=== PATIENT | female | born 1965 | race Caucasian/White ===

== ENCOUNTER 2019-02-24 13:06 | Observation (INO) ==
--- NOTE | 2019-02-24 13:25 | ERNOTE ---
ER Female HPI Date of Service: 02/24/19 Stated Complaint: abd & back pain Presenting Symptoms: dysuria Time Seen by Provider: 02/24/19 13:25 Source: patient Exam Limitations: no limitations Immunizations: IMMUNIZATION HX Immunizations Up to Date Yes History of Influenza Vaccine Yes Hx Pneumococcal Vaccination No Allergies/Adverse Reactions: Allergies codeine Allergy (Severe, Verified 02/24/19 13:20) itching Home Medications: HOME MEDICATIONS aspirin 81 mg tablet,delayed release 81 mg PO DAILY 06/03/18 [Last Taken Unknown] atorvastatin 20 mg tablet 20 mg PO DAILY 06/03/18 [Last Taken Unknown] dextroamphetamine-amphetamine ER 25 mg 24hr capsule,extend release 50 mg PO DAILY cap 06/03/18 [Last Taken Unknown] lisinopril 20 mg tablet 20 mg PO DAILY 06/03/18 [Last Taken Unknown] medroxyprogesterone 150 mg/mL intramuscular suspension 150 mg IM [id number] 06/03/18 [Last Taken Unknown] metoprolol tartrate 100 mg tablet 100 mg PO DAILY tab 06/03/18 [Last Taken Unknown] multivitamin tablet 1 tab PO DAILY 06/03/18 [Last Taken Unknown] omeprazole 20 mg capsule,delayed release 20 mg PO DAILY 06/03/18 [Last Taken Unknown] ranitidine 150 mg tablet 150 mg PO DAILY 06/03/18 [Last Taken Unknown] buspirone 10 mg tablet 10 mg PO BID 01/02/19 [Last Taken Unknown] Fexofenadine/Pseudoephedrine [Sharmila-D 24 Hour Tablet] 1 ea PO DAILY 01/21/19 [Last Taken Unknown] Warfarin Sodium [Coumadin] 12.5 mg PO DAILY 02/24/19 [Last Taken Unknown] Pain Score #1 Pain Score: 7 - History of Present Illness Narrative: The patient is a 53 year old female who presents for suprapubic pain, bilateral low back pain and hematuria which has been present since Sunday. There are associated symptoms of hypercoagulation. The patient reports combs prapubic pain and bilateral low back pain, 05/07. There are no alleviating factors. There are no aggravating factors. Previous treatments have included: recent administration of Vitamin K po. The past medical history includes: PE with anticoagulation therapy, DVT, ADD, uterine fibroid, GERD, HTN and ovarian cyst. The social history is positive for current tobacco use. The patient has had no ill contacts. Patient states she began having bilateral low back pain and suprapubic pain on Sunday which has worsened throughout the weekend. Patient reports she began having hematuria this am. Patient states she had INR checked at [facility] and then had repeat draw at [facility] with elevated results of INR 10. Review of Systems - Review of Systems Constitutional: Present: chills, fatigue. Absent: recent illness, fever EYE: Present: no symptoms reported ENT: Present: no symptoms reported. Absent: ear pain, nasal drainage, sore throat Respiratory: Present: no symptoms reported. Absent: shortness of breath, cough Cardiology: Present: no symptoms reported. Absent: chest pain Gastrointestinal/Abdominal: Present: nausea, abdominal pain, eating less, drinking less. Absent: vomiting, diarrhea Genitourinary: Present: hematuria. Absent: dysuria Musculoskeletal: Present: back pain Skin: Present: no symptoms reported. Absent: rash Neurological: Present: no symptoms reported Hematologic/Lymphatic: Present: easy bruising, easy bleeding All Other Systems: All systems neg except as marked Medical History (Updated 02/24/19 @ 16:41 by MADHAV Buckley) Has received influenza vaccination in current influenza season (Acute) ADD (attention deficit disorder) Onset Date: Unknown GERD (gastroesophageal reflux disease) Onset Date: Unknown Hypertension Onset Date: Unknown Received influenza vaccination in current influenza season prior to admission Onset Date: ~08/2018 DVT (deep venous thrombosis) Onset Date: ~2008 popliteal DVT right leg Dysmenorrhea Onset Date: 11/25/13 Fibroid, uterine Onset Date: Unknown Hemorrhoids Onset Date: 11/25/13 Menometrorrhagia Onset Date: 11/25/13 Ovarian cyst Onset Date: 09/24/13 left [place] teeth extracted Onset Date: Unknown Surgical History: Surgical History (Updated 11/22/18 @ 14:19 by Sindhu Aguirre [facility]) H/O section Onset Date: ~1995 x 2 - 1987 and 1995 H/O colonoscopy Onset Date: ~09/2017 benign polyp - [facility] - recheck 10 years H/O dilation and curettage Onset Date: ~2001 H/O endoscopy Onset Date: ~09/2017 l [facility] H/O hernia repair Onset Date: ~1997 H/O tubal ligation Onset Date: ~2001 Previous back surgery Onset Date: ~2002 disc surgery Status post hysteroscopic ablation of endometrium Onset Date: Unknown Family History: Family History (Updated 06/03/18 @ 17:12 by Sindhu Aguirre CMA) Aunt Heart disease maternal/paternal Uncle Heart disease maternal/paternal Cancer maternal Brother Rectal cancer Father Hypertension Heart disease Cerebral hemorrhage Grandfather , paternal Heart disease Stomach cancer Grandmother , maternal Uterine cancer Grandmother , paternal CHF (congestive heart failure) Mother Hypertension Heart disease CAD (coronary artery disease) CHF (congestive heart failure) Sister Diabetes Social History: Preferred Language Croatian Do you have any shinto or No cultural preference? Smoking Status Current every day smoker Have you smoked in the past 12 Yes months Do you dip or chew tobacco No Alcohol Use occasionally Drug Use none (Last Updated 01/02/19 @ 18:15 by Teresa Weems DNP) No Social History Section defined Physical Exam - Physical Exam General Appearance: Present: wd/wn, alert, mild distress Head Exam: Present: normal inspection Eye Exam: Normal inspection: bilateral Neck: Present: normal inspection Respiratory: Present: no respiratory distress, normal breath sounds, no accessory muscle use, lungs clear Cardiovascular/Chest: Present: regular rate, rhythm, no murmur Gastrointestinal/Abdominal: Present: normal bowel sounds, nondistended, soft, no organomegaly, tenderness - suprapubic, moderate Back Exam: Present: CVA tenderness (R) - R>L, right side moderate, CVA tenderness (L) Neurological Exam: Present: alert, oriented, normal mood/affect Skin Exam: Present: normal color, warm/dry Progress - Date and Time Seen: Date and Time: 02/24/19 16:19 Discussed case with , will admit patient here due to patient's PCP being unavailable for close follow up as well as pain management and hydration. Discussed case with and will admit, repeat INR this evening. Will initiate with fluid bolus and then maintenance fluids NS at 125ml/hr. Patient received Vitamin K 5mg po ORDER TAKER, will administer 5mg IM. - Results and Orders Patient's Lab Results:: I have reviewed the patient's lab results. - Vital Signs Patient's Vital Signs:: I have reviewed the patient's vital signs. Vital Signs: Vital Signs 02/24/19 13:17 Temperature 36.3 C Pulse Rate 73 Respiratory Rate 16 Blood Pressure 184/102 H O2 Sat by Pulse Oximetry 98 - CT/Ultrasound CT/Ultrasound Narrative: IMPRESSION: * Tiny punctate intrarenal calcification of the left kidney upper pole region. * There are signs of bilateral acute uropathy, with mild bilateral hydronephrosis/proximal hydroureter, and stranding of the bilateral parapelvic/proximal periureteric fat, without signs of bladder or ureteral calcification. There is asymmetric left renal parenchymal/perinephric edema. Differential diagnosis includes recently passed stone from both kidneys, bilateral renal obstructions from other etiologies to include blood clots or tumor, and bilateral pyelonephritis. Consider urology consultation. * Incidental 7 mm pulmonary nodule of the right lower lobe posterior basal segment, which was seen on the previous recent CT angiography dated 01/21/2019. Please see its report for additional details regarding follow-up recommendations. * Additional comments are as above. The examination is overall suboptimal due to noncontrast CT technique, specifically in regards to neoplastic or vascular processes. Potential parenchymal tumor, or acute vascular processes such as aortic/arterial dissection or thrombosis of a vascular structure cannot be entirely excluded by noncontrast exam. Electronically signed by Gio Caal M.D.. 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
[2019-02-24 13:41] LABS: Urine Bilirubin Negative (NEGATIVE); Urine Blood 250 /ul (NEGATIVE); Urine Ketone Negative (NEGATIVE); Urine Nitrite Negative (NEGATIVE); Urine Protein 100 mg/dL (NEGATIVE); Urine Specific Gravity 1.025 SP.GR. (1.005-1.010); Urine Urobilinogen Normal (NORMAL)
[2019-02-24 13:46] LABS: Urine Appearance Bloody (CLEAR); Urine Bacteria 1+; Urine Color Red; Urine RBC >50 /hpf (0-5)
[2019-02-24 13:53] LABS: Hematocrit 42.7 % (37.0-47.0); Hemoglobin 14.6 gm/dL (12.5-16.0); Mean Cell Volume 98.8 fl (78-100); Mean Corpuscular Hemoglobin 33.8 pg (27-31); Mean Corpuscular Hgb Conc 34.2 g/dl (32-36); Mean Platelet Volume 9.6 fl (8-12.5); Neutrophil # 6.6 K/mm3 (1.3-6.0); Neutrophil % 72.7 % (42-75.0); Platelet Count 323 K/mm3 (150-450); Red Blood Count 4.32 M/mm3 (4.2-5.4); Red Cell Distribution Width 13.8 % (11.5-14.0); White Blood Count 9.1 K/mm3 (4.0-10.5)
[2019-02-24 14:48] LABS: Albumin * 3.4 gm/dl (3.4-5.0); BUN/Creatinine Ratio 11.4 (9.0-21.6); CRP 1.2 mg/dL (0.0-0.9); Ca. Corrected For Albumin 9.4 mg/dL (8.4-10.2); Calcium * 9.2 mg/dL (7.9-10.9); Carbon Dioxide 23.2 mmol/L (24-32.6); Potassium 4.2 mmol/L (3.4-4.6); Total Protein 7.4 gm/dL (6.2-8.2)
[2019-02-24] MEDS ORDERED: MORPHINE SULFATE 2 MG/ML DISP.SYRIN IV ONE (16:28)
[2019-02-24] MEDS ORDERED: NORMAL SALINE 1,000 ML IV PRN (16:28)
[2019-02-24] MEDS ORDERED: PHYTONADIONE (VIT K1) 10 MG/ML AMPUL IM ONE (16:39)
[2019-02-24] MEDS ORDERED: ONDANSETRON HCL/PF 2 MG/ML VIAL IV PRN (16:53)
[2019-02-24 17:32] LABS: INR Greater than 10.00 INR (0.92-1.08)
[2019-02-24] MEDS: MORPHINE SULFATE 2 MG/ML DISP.SYRIN IV PRN ×3 (17:38→22:41)
[2019-02-24] MEDS: NORMAL SALINE 1,000 ML IV PRN (18:00)
--- NOTE | 2019-02-24 19:04 | HP ---
Chief Complaint - Chief Complaint Date of Service: 02/24/19 Time of Service: 19:03 Chief Complaint: Abdominal pain, blood in urine History of Present Illness: 53-year-old female with past Dave history of DVT presented to the ER with bilateral flank pain and blood in her urine. Patient is currently on Coumadin for DVT found in her right lower extremity. She has been taking 50 mg a day. INR checked there is greater than 10. Rest of her labs are stable including kidney function and hemogram. She was called in a dose of oral vitamin K by her PCP 5 mg which she took prior to come to the ER. She was given another dose of 5 mg IM vitamin K. Her vital signs are stable, she is afebrile, rest of her blood work was within acceptable range. CT scan of her abdomen without contrast showed her to have bilateral kidney abnormalities resulting in mild hydronephrosis. Because of the hydronephrosis was undetermined but differential included thrombus, pyelo-, cannot exclude tumor. Dr. Brown was called from the ER, he stated that we could start her on antibiotics if he felt clinically that she had an infection but otherwise could hold off on doing this. She is given morphine for her abdominal pain which resolved her issue there. She was admitted under observation due to supratherapeutic INR, hematuria, and unknown bilateral renal abnormality seen on CT scan. Patient has a history of hypertension, hyperlipidemia, GERD. Medical History (Updated 02/24/19 @ 19:04 by George Robles DO) Has received influenza vaccination in current influenza season (Acute) ADD (attention deficit disorder) Onset Date: Unknown GERD (gastroesophageal reflux disease) Onset Date: Unknown Hypertension Onset Date: Unknown Received influenza vaccination in current influenza season prior to admission Onset Date: ~08/2018 DVT (deep venous thrombosis) Onset Date: ~2008 popliteal DVT right leg Dysmenorrhea Onset Date: 11/25/13 Fibroid, uterine Onset Date: Unknown Hemorrhoids Onset Date: 11/25/13 Menometrorrhagia Onset Date: 11/25/13 Ovarian cyst Onset Date: 09/24/13 left [place] teeth extracted Onset Date: Unknown Surgical History: Surgical History (Updated 02/24/19 @ 19:04 by George Robles DO) H/O section Onset Date: ~1995 x - 1987 and 1995 H/O colonoscopy Onset Date: ~09/2017 benign polyp - [facility] - recheck 10 years H/O dilation and curettage Onset Date: ~2001 H/O endoscopy Onset Date: ~09/2017 wnl - [facility] H/O hernia repair Onset Date: ~1997 H/O tubal ligation Onset Date: ~2001 Previous back surgery Onset Date: ~2002 disc surgery Status post hysteroscopic ablation of endometrium Onset Date: Unknown Family History: Family History (Last Updated 02/24/19 @ 17:15 by Tisha Vásquez RN) Aunt Heart disease maternal/paternal Uncle Heart disease maternal/paternal Cancer maternal Brother Rectal cancer Father Cerebral hemorrhage Heart disease Hypertension Grandfather , paternal Stomach cancer Heart disease Grandmother , maternal Uterine cancer Grandmother , paternal CHF (congestive heart failure) Mother CAD (coronary artery disease) CHF (congestive heart failure) Heart disease Hypertension Sister Diabetes Social History: Patient Lives/Resources Home Utilized Preferred Language Gibraltarian Do you have any sikh or No cultural preference? Smoking Status Current every day smoker Have you smoked in the past 12 Yes months Do you dip or chew tobacco No Alcohol Use occasionally Drug Use none (Last Updated 01/02/19 @ 18:15 by Teresa Weems DNP) No Social History Section defined Review Of Systems (GEN) - Review of Systems Generalized/Overall Review: Absent: Weakness, Chills, Fever, Fatigue EENTM: Present: No Symptoms Reported Respiratory: Absent: Cough, Shortness of Breath Cardiac: Present: No Symptoms Reported Abdominal: Present: Abdominal Pain. Absent: Nausea, Vomiting, Hematemesis, Melena Genitourinary: Present: Hematuria. Absent: Burning, Urgency, Frequency Musculoskeletal: Present: Other - Bilateral flank pain Neurological: Present: No Symptoms Reported Skin: Present: No Symptoms Reported Immunizations: IMMUNIZATION HX Immunizations Up to Date Yes History of Influenza Vaccine Yes Hx Pneumococcal Vaccination No Allergies/Adverse Reactions: Allergies Allergy/AdvReac Type Severity Reaction Status Date / Time codeine Allergy Severe itching Verified 02/24/19 17:16 Home Medications: HOME MEDICATIONS aspirin 81 mg tablet,delayed release 81 mg PO DAILY 06/03/18 [Last Taken Unknown] atorvastatin 20 mg tablet 20 mg PO DAILY 06/03/18 [Last Taken Unknown] dextroamphetamine-amphetamine ER 25 mg 24hr capsule,extend release 50 mg PO DAILY cap 06/03/18 [Last Taken Unknown] lisinopril 20 mg tablet 20 mg PO DAILY 06/03/18 [Last Taken Unknown] medroxyprogesterone 150 mg/mL intramuscular suspension 150 mg IM [id number] 06/03/18 [Last Taken Unknown] multivitamin tablet 1 tab PO DAILY 06/03/18 [Last Taken Unknown] omeprazole 20 mg capsule,delayed release 40 mg PO DAILY 06/03/18 [Last Taken 02/24/19] ranitidine 150 mg tablet 150 mg PO DAILY 06/03/18 [Last Taken Unknown] buspirone 10 mg tablet 10 mg PO BID 01/02/19 [Last Taken Unknown] Fexofenadine/Pseudoephedrine [Sharmila-D 24 Hour Tablet] 1 ea PO DAILY 01/21/19 [Last Taken Unknown] Warfarin Sodium [Coumadin] 12.5 mg PO DAILY 02/24/19 [Last Taken Unknown] Metoprolol Succinate [Toprol Xl] 100 mg PO QAM 02/25/19 [Last Taken 02/24/19] Exam - Exam Vital Signs: Vital Signs - Last Taken Temp 36.6 C 02/24/19 17:19 Pulse 67 02/24/19 17:19 Resp 16 02/24/19 17:19 BP 170/90 H 02/24/19 17:19 Pulse Ox 99 02/24/19 17:19 Constitutional: Present: Alert, Oriented x3, Cooperative, Obese Neck: Present: non-tender, full range of motion Back Exam: Present: CVA tenderness (R), CVA tenderness (L) Respiratory: Present: lungs clear, normal breath sounds, no respiratory distress Cardiovascular/Chest: Present: regular rate, rhythm, no edema Abdomen: Present: Normal bowel sounds, soft, nontender /Rectal: Present: Exam deferred Skin Exam: Present: normal color, warm/dry Appearance: Present: appropriate appearance, appropriate insight Eye contact: Present: cooperative, good eye contact, normal speech Thoughts: Present: normal thought pattern, normal mood /affect Diagnostic Studies: Abnormal Lab Results 02/24/19 02/24/19 02/24/19 Range/Units 13:31 13:45 13:48 MCH 33.8 H (27-31) pg Lymphocytes % 15.9 L (20-51) % Neutrophils # 6.6 H (1.3-6.0) K/mm3 Lymphocytes # 1.44 L (1.5-3.5) k/mm3 PT Greater than 100.0 H (9.1-10.7) Seconds INR (Anticoag Therapy) Greater than 10.00 H* (0.92-1.08) INR Carbon Dioxide (24-32.6) mmol/L Anion Gap (6.8-13.8) mmol/L C-Reactive Prot, Quant (0.0-0.9) mg/dL Urine Protein 100 H (NEGATIVE) mg/dL Urine Blood 250 H (NEGATIVE) /ul Prot Sulfosalicylic Acd 4+ H (0) mg/dL Urine RBC >50 H (0-5) /hpf Urine WBC 5-10 H (0-5) /hpf Urine Bacteria 1+ H (NONE) 02/24/19 Range/Units 13:48 MCH (27-31) pg Lymphocytes % (20-51) % Neutrophils # (1.3-6.0) K/mm3 Lymphocytes # (1.5-3.5) k/mm3 PT (9.1-10.7) Seconds INR (Anticoag Therapy) (0.92-1.08) INR Carbon Dioxide 23.2 L (24-32.6) mmol/L Anion Gap 15.0 H (6.8-13.8) mmol/L C-Reactive Prot, Quant 1.2 H (0.0-0.9) mg/dL Urine Protein (NEGATIVE) mg/dL Urine Blood (NEGATIVE) /ul Prot Sulfosalicylic Acd (0) mg/dL Urine RBC (0-5) /hpf Urine WBC (0-5) /hpf Urine Bacteria (NONE) Laboratory Results WBC 9.1 K/mm3 (4.0-10.5) 02/24/19 13:48 RBC 4.32 M/mm3 (4.2-5.4) 02/24/19 13:48 Hgb 14.6 gm/dL (12.5-16.0) 02/24/19 13:48 Hct 42.7 % (37.0-47.0) 02/24/19 13:48 MCV 98.8 fl (78-100) 02/24/19 13:48 MCH 33.8 pg (27-31) H 02/24/19 13:48 MCHC 34.2 g/dl (32-36) 02/24/19 13:48 RDW 13.8 % (11.5-14.0) 02/24/19 13:48 Plt Count 323 K/mm3 (150-450) 02/24/19 13:48 MPV 9.6 fl (8-12.5) 02/24/19 13:48 Immature Gran % (Auto) 0.10 % (0.001-0.429) 02/24/19 13:48 Immature Gran # (Auto) 0.01 K/mm3 (0.000-0.0310) 02/24/19 13:48 72.7 % (42-75.0) 02/24/19 13:48 15.9 % (20-51) L 02/24/19 13:48 8.5 % (0.0-9) 02/24/19 13:48 2.0 % (0.0-3.0) 02/24/19 13:48 0.8 % (0.0-1.0) 02/24/19 13:48 Nucleated RBC % 0.0 k/mm3 (0-1) 02/24/19 13:48 6.6 K/mm3 (1.3-6.0) H 02/24/19 13:48 1.44 k/mm3 (1.5-3.5) L 02/24/19 13:48 0.8 k/mm3 (0.0-1.0) 02/24/19 13:48 0.2 k/mm3 (0.0-0.7) 02/24/19 13:48 Absolute Basophils 0.1 k/mm3 (0.0-0.1) 02/24/19 13:48 PT Greater than 100.0 Seconds (9.1-10.7) H 02/24/19 13:45 INR (Anticoag Therapy) Greater than 10.00 INR (0.92-1.08) H* 02/24/19 13:45 Sodium 137 mmol/L (132-142) 02/24/19 13:48 137 mmol/L (130-142) 02/24/19 13:48 Potassium 4.2 mmol/L (3.4-4.6) 02/24/19 13:48 Chloride 103 mmol/L (97-106) 02/24/19 13:48 Carbon Dioxide 23.2 mmol/L (24-32.6) L 02/24/19 13:48 15.0 mmol/L (6.8-13.8) H 02/24/19 13:48 BUN 9 mg/dL (3-23) 02/24/19 13:48 0.79 mg/dL (0.4-1.4) 02/24/19 13:48 Est GFR (Non-Af Amer) 82 mL/min (60-130) D 02/24/19 13:48 11.4 (9.0-21.6) 02/24/19 13:48 104 mg/dL (70-110) 02/24/19 13:48 Calcium 9.2 mg/dL (7.9-10.9) 02/24/19 13:48 Calcium Adj for Albumin 9.4 mg/dL (8.4-10.2) 02/24/19 13:48 1.0 mg/dL (0.0-1.1) 02/24/19 13:48 AST 15 U/L (0-48) 02/24/19 13:48 ALT 19 U/L (19-67) 02/24/19 13:48 112 U/L (50-170) 02/24/19 13:48 C-Reactive Prot, Quant 1.2 mg/dL (0.0-0.9) H 02/24/19 13:48 7.4 gm/dL (6.2-8.2) 02/24/19 13:48 3.4 gm/dl (3.4-5.0) 02/24/19 13:48 Red 02/24/19 13:31 Bloody (CLEAR) 02/24/19 13:31 7.0 pH (5.0-7.0) 02/24/19 13:31 Ur Specific [place] 1.025 SP.GR. (1.005-1.010) 02/24/19 13:31 100 mg/dL (NEGATIVE) H 02/24/19 13:31 Negative mg/dL (NEGATIVE) 02/24/19 13:31 Negative mg/dL (NEGATIVE) 02/24/19 13:31 250 /ul (NEGATIVE) H 02/24/19 13:31 Negative (NEGATIVE) 02/24/19 13:31 Negative mg/dl (NEGATIVE) 02/24/19 13:31 Prot Sulfosalicylic Acd 4+ mg/dL (0) H 02/24/19 13:31 Normal EU/dl (NORMAL) 02/24/19 13:31 Ur Leukocyte Esterase Negative /ul (NEGATIVE) 02/24/19 13:31 >50 /hpf (0-5) H 02/24/19 13:31 5-10 /hpf (0-5) H 02/24/19 13:31 Ur Epithelial Cells None seen /hpf (0-5) 02/24/19 13:31 1+ (NONE) H 02/24/19 13:31 No culture indicated 02/24/19 13:31 Assessment/Plan - Narrative Narrative: Patient brought in under observation for elevated INR. Patient diagnosed with DVT last month and has been on Coumadin since. Patient has been being monitored by a physician in [place], currently taking 15 mg of warfarin a day. She was given a total of 10 mg of vitamin K today, will recheck INR in the morning, we will monitor hemoglobin and hematocrit Coumadin at this time, though both are stable at this time. Blood pressure slightly elevated, will restart home medications to be given as directed. Will also add IV hydralazine as needed 10 mg every 2 hours for systolic pressures greater than 170. We will continue to monitor her blood pressure, make changes as needed. Likely will repeat CT scan with contrast in the morning to further evaluate abnormality seen on prior CT scan. Pending what that scan shows, will discuss his case again with Dr. Brown if significant abnormality identified. Otherwise the scan comes back showing that her kidneys are okay and her INR improves overnight, she likely can be discharged home tomorrow with close follow-up with her PCP. 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
[2019-02-24] MEDS ORDERED: hydrALAZINE HCL 20 MG/ML VIAL IV PRN (19:26)
[2019-02-24 19:38] LABS: INR Greater than 10.00 INR (0.92-1.08)
[2019-02-24] MEDS: busPIRone HCL 5 MG TABLET PO SCH (20:16)
[2019-02-25] MEDS: MORPHINE SULFATE 2 MG/ML DISP.SYRIN IV PRN ×4 (00:53→08:29)
[2019-02-25] MEDS: NORMAL SALINE 1,000 ML IV PRN ×3 (01:46→21:20)
[2019-02-25 05:28] LABS: Hematocrit 40.5 % (37.0-47.0); Hemoglobin 13.4 gm/dL (12.5-16.0); Mean Cell Volume 101.3 fl (78-100); Mean Corpuscular Hemoglobin 33.5 pg (27-31); Mean Corpuscular Hgb Conc 33.1 g/dl (32-36); Mean Platelet Volume 9.6 fl (8-12.5); Neutrophil # 4.2 K/mm3 (1.3-6.0); Neutrophil % 61.5 % (42-75.0); Platelet Count 280 K/mm3 (150-450); Red Cell Distribution Width 13.7 % (11.5-14.0); White Blood Count 6.9 K/mm3 (4.0-10.5)
[2019-02-25 05:37] LABS: Anion Gap 13.5 mmol/L (6.8-13.8); Calcium * 8.5 mg/dL (7.9-10.9); Carbon Dioxide 23.3 mmol/L (24-32.6); Potassium 3.8 mmol/L (3.4-4.6)
[2019-02-25 05:49] LABS: Prothrombin Time (Patient) 48.5 Seconds (9.1-10.7)
[2019-02-25] MEDS: PANTOPRAZOLE SODIUM 20 MG TABLET.DR PO SCH (06:43)
[2019-02-25 07:07] LABS: INR 5.22 INR (0.92-1.08)
[2019-02-25] MEDS: METOPROLOL TARTRATE 100 MG TABLET PO SCH ×2 (08:12→08:25)
[2019-02-25] MEDS: busPIRone HCL 5 MG TABLET PO SCH ×2 (08:12→21:17)
[2019-02-25] MEDS ORDERED: ROSUVASTATIN CALCIUM 10 MG TABLET PO SCH (09:00)
--- NOTE | 2019-02-25 09:24 | PN ---
Subjective - Date and Time Seen Date: 02/25/19 Time: 09:18 Subjective Narrative: Patient did well overnight without any acute events. Her vital signs been stable. She is been afebrile. Her abdominal pain is improving requiring less morphine that is being spaced out over longer period of time. Her INR has improved and her hemoglobin is stable. Objective - Review of Systems Generalized/Overall Review: Reports: No Symptoms Reported EENTM: Reports: No Symptoms Reported Respiratory: Reports: No Symptoms Reported Cardiac: Reports: No Symptoms Reported Abdominal: Reports: Abdominal Pain. Denies: Hematemesis, Melena, Bright blood from rectum Genitourinary Symptoms: Reports: Hematuria - Improving, urine more clear and less dark red. Denies: Burning, Urgency, Frequency Musculoskeletal Complaints: Reports: No Symptoms Reported Neurological: Reports: No Symptoms Reported - Vitals Vitals: Last Vital Signs Temp 36.8 C 02/25/19 08:53 Pulse 79 02/25/19 08:53 Resp 18 02/25/19 08:53 BP 138/61 02/25/19 08:53 Pulse Ox 96 02/25/19 08:53 - Abnormal Lab Findings Abnormal Lab Findings: Abnormal Lab Results 02/24/19 02/24/19 02/24/19 Range/Units 13:31 13:45 13:48 RBC (4.2-5.4) M/mm3 MCV (78-100) fl MCH 33.8 H (27-31) pg Lymphocytes % 15.9 L (20-51) % Neutrophils # 6.6 H (1.3-6.0) K/mm3 Lymphocytes # 1.44 L (1.5-3.5) k/mm3 PT Greater than 100.0 H (9.1-10.7) Seconds INR (Anticoag Therapy) Greater than 10.00 H* (0.92-1.08) INR Carbon Dioxide (24-32.6) mmol/L Anion Gap (6.8-13.8) mmol/L C-Reactive Prot, Quant (0.0-0.9) mg/dL Urine Protein 100 H (NEGATIVE) mg/dL Urine Blood 250 H (NEGATIVE) /ul Prot Sulfosalicylic Acd 4+ H (0) mg/dL Urine RBC >50 H (0-5) /hpf Urine WBC 5-10 H (0-5) /hpf Urine Bacteria 1+ H (NONE) 02/24/19 02/24/19 02/25/19 Range/Units 13:48 19:05 05:15 RBC 4.00 L (4.2-5.4) M/mm3 MCV 101.3 H (78-100) fl MCH 33.5 H (27-31) pg Lymphocytes % (20-51) % Neutrophils # (1.3-6.0) K/mm3 Lymphocytes # (1.5-3.5) k/mm3 PT Greater than 100.0 H (9.1-10.7) Seconds INR (Anticoag Therapy) Greater than 10.00 H* (0.92-1.08) INR Carbon Dioxide 23.2 L (24-32.6) mmol/L Anion Gap 15.0 H (6.8-13.8) mmol/L C-Reactive Prot, Quant 1.2 H (0.0-0.9) mg/dL Urine Protein (NEGATIVE) mg/dL Urine Blood (NEGATIVE) /ul Prot Sulfosalicylic Acd (0) mg/dL Urine RBC (0-5) /hpf Urine WBC (0-5) /hpf Urine Bacteria (NONE) 02/25/19 02/25/19 Range/Units 05:15 05:15 RBC (4.2-5.4) M/mm3 MCV (78-100) fl MCH (27-31) pg Lymphocytes % (20-51) % Neutrophils # (1.3-6.0) K/mm3 Lymphocytes # (1.5-3.5) k/mm3 PT 48.5 H (9.1-10.7) Seconds INR (Anticoag Therapy) 5.22 H* (0.92-1.08) INR Carbon Dioxide 23.3 L (24-32.6) mmol/L Anion Gap (6.8-13.8) mmol/L C-Reactive Prot, Quant (0.0-0.9) mg/dL Urine Protein (NEGATIVE) mg/dL Urine Blood (NEGATIVE) /ul Prot Sulfosalicylic Acd (0) mg/dL Urine RBC (0-5) /hpf Urine WBC (0-5) /hpf Urine Bacteria (NONE) - Exam Constitutional: Present: Alert, Oriented x3, Cooperative, Obese ENT Exam: Present: hearing grossly normal. Absent: nasal congestion, nasal drainage Neck: Present: non-tender, full range of motion Breasts: Present: Exam deferred Respiratory: Present: chest non-tender, lungs clear, normal breath sounds Cardiovascular/Chest: Present: normal peripheral pulses, regular rate, rhythm, no edema Abdomen: Present: Normal bowel sounds, soft, nontender, CVA tenderness - Bilateral /Rectal: Present: Exam deferred Skin Exam: Present: normal color, warm/dry Appearance: Present: appropriate appearance Eye contact: Present: cooperative, good eye contact Thoughts: Present: normal thought pattern, normal mood /affect Assessment/Plan Plan Narrative: Patient did well overnight. INR returned to 5.2 after the 10 mg of vitamin K was given to the patient. Hemoglobin dropped from 14.6-13.4 for but otherwise is stable. We will continue to monitor INR and hemoglobin if patient stays over night. Awaiting CT with contrast this morning to further evaluate abnormality seen on scan without contrast done yesterday, this will determine whether or not patient needs to stay for further work-up. Blood pressure stable and she is feeling well. She is still afebrile. Pain significantly improved and well controlled. No DVT prophylaxis patient is still supratherapeutic. Regular diet started. Home medications restarted this a.m. nurse will call with any questions or concerns. 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
[2019-02-25] MEDS ORDERED: DIATRIZOATE MEGLUMINE, SODIUM 30 ML BTL PO ONE (11:00)
[2019-02-25] MEDS ORDERED: ACETAMINOPHEN 500 MG TABLET PO PRN (14:32)
[2019-02-25] MEDS ORDERED: ROSUVASTATIN CALCIUM 20 MG TABLET PO SCH (21:00)
[2019-02-25] MEDS ORDERED: METOPROLOL SUCCINATE 50 MG TABLET.SA PO ONE (21:07)
[2019-02-25] MEDS: METOPROLOL SUCCINATE 100 MG TABLET.SA PO SCH (21:18)
[2019-02-26] MEDS: NORMAL SALINE 1,000 ML IV PRN (04:19)
[2019-02-26 05:44] LABS: Prothrombin Time (Patient) 20.9 Seconds (9.1-10.7)
[2019-02-26 05:45] LABS: Anion Gap 12.7 mmol/L (6.8-13.8); BUN/Creatinine Ratio 10.8 (9.0-21.6); Calcium * 8.7 mg/dL (7.9-10.9); Carbon Dioxide 22.3 mmol/L (24-32.6); Estimated Creat Clear 79.3; INR 2.18 INR (0.92-1.08)
[2019-02-26] MEDS: PANTOPRAZOLE SODIUM 20 MG TABLET.DR PO SCH (07:34)
[2019-02-26] MEDS: busPIRone HCL 5 MG TABLET PO SCH (08:50)
--- NOTE | 2019-02-26 10:32 | PN ---
Subjective - Date and Time Seen Date: 02/26/19 Time: 10:32 Objective - Vitals Vitals: Last Vital Signs Temp 37.2 C 02/26/19 10:00 Pulse 77 02/26/19 10:00 Resp 18 02/26/19 10:00 BP 128/64 02/26/19 10:00 Pulse Ox 96 02/26/19 10:00 - Abnormal Lab Findings Abnormal Lab Findings: Abnormal Lab Results 02/26/19 02/26/19 Range/Units 05:25 05:25 PT 20.9 H (9.1-10.7) Seconds INR (Anticoag Therapy) 2.18 H (0.92-1.08) INR Chloride 109 H (97-106) mmol/L Carbon Dioxide 22.3 L (24-32.6) mmol/L Assessment/Plan - Problems/Diagnosis (1) Hematuria Problem: Acute Qualifiers: Hematuria type: gross Qualified Code(s): R31.0 - Gross hematuria (2) Elevated INR Problem: Acute (3) 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
--- NOTE | 2019-02-26 13:43 | CONS ---
HPI - General Narrative: Reason for consultation: Gross hematuria and CT abnormality possible hydronephrosis 53-year-old female smoker although trying to quit on Coumadin with supratherapeutic INR developed gross hematuria. 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 She cannot come off. She developed severe back pain bilaterally after the gross hematuria. There is a recurrent infection history but not frequent. She has not received antibiotics. Her urinalysis was voiding into a hat so I don't know how accurate that is. She has had another bleeding episode in the past roughly a year ago thought it was an infection. 02/14 voided UA: Microscopic abnormality, 1+ bacteria. Culture: Not performed/no results 02/14 blood cultures: Negative 02/14 midstream UA today: Pending Creatinine history: 02/14 0.85 02/14 CT stone protocol: No stones, possibly some mild hydronephrosis bilaterally but the same haziness seen on the CT urogram is present here. Ureters aren't dilated. Most common cause of this finding would be infectious, some sort of weird retroperitoneal fibrosis but the obstruction is not consistent versus may be normal for patient. Not sure yet. Film independently reviewed by myself. 02/14 CT urogram: No stones or true hydronephrosis. Excretion is symmetrical prompt. There is a haziness in the retroperitoneum starting renal pelvis all the way down to the bladder but it is symmetric. No obstruction. No filling defects in the bladder. Not sure as to clinical significance just looks weird on CT. film independently reviewed by myself. Location: Bladder Duration: Days Severity/Stage: Severe, gross hematuria clots Associated Sx's: Bleeding/bilateral back pain, no nausea Modifying factors: Pain got better after the bleeding subsided, bleeding subsided after the INR was reversed Quality: Dull ache with sharper component during the acute obstruction phase. Past medical history: Includes recurrent DVT with PE for which she is on Coumadin, not diabetic Past surgical history: No prior urologic surgery Social history: Smoker, she is down to a couple cigarettes he will quick, she got the fist bump. Family history: No urologic malignancies Review of systems:General: No current fevers, no fevers when she had gross hematuria Lungs: Smoker but no current shortness of breath, she has had prior PE Heart: No chest pain, denies arrhythmia GI: Did not have nausea Gynecologic: Still has female organs, estrogen risk factors positive 2 out of 5 Musculoskeletal: Digits have bilateral significant back pain now resolved Endocrine: Denies diabetes Neurologic: No dizziness or headache currently : Prior gross hematuria year ago. Rare infection. 14 point review of systems otherwise negative, important positives noted. - History of Present Illness Allergies/Adverse Reactions: Allergies codeine Allergy (Severe, Verified 02/24/19 17:16) itching Home Medications: Home Medications Medication Instructions Recorded Last Taken aspirin 81 mg tablet,delayed 81 mg PO DAILY 06/03/18 Unknown release atorvastatin 20 mg tablet 20 mg PO DAILY 06/03/18 Unknown dextroamphetamine-amphetamine ER 50 mg PO DAILY cap 06/03/18 Unknown 25 mg 24hr capsule,extend release lisinopril 20 mg tablet 20 mg PO DAILY 06/03/18 Unknown medroxyprogesterone 150 mg/mL 150 mg IM [id number] 06/03/18 Unknown intramuscular suspension multivitamin tablet 1 tab PO DAILY 06/03/18 Unknown omeprazole 20 mg capsule,delayed 40 mg PO DAILY 06/03/18 02/24/19 release ranitidine 150 mg tablet 150 mg PO DAILY 06/03/18 Unknown buspirone 10 mg tablet 10 mg PO BID 01/02/19 Unknown Fexofenadine/Pseudoephedrine 1 ea PO DAILY 01/21/19 Unknown [Sharmila-D 24 Hour Tablet] Warfarin Sodium [Coumadin] 12.5 mg PO DAILY 02/24/19 Unknown Metoprolol Succinate [Toprol Xl] 100 mg PO QAM 02/25/19 02/24/19 Medications - Medications Current Medications: Current Medications Acetaminophen (Tylenol) 1,000 mg PO Q8H PRN PRN Reason: Mild pain (pain scale 1-3) Stop: 03/27/19 14:33 Last Admin: 02/25/19 14:58 Dose: 1,000 mg Documented by: Buspirone HCl (Buspar) 10 mg PO BID LILY Stop: 03/26/19 21:01 Last Admin: 02/26/19 08:50 Dose: 10 mg Documented by: Sodium Chloride (Sodium Chloride 0.9%) 1,000 mls @ 999 mls/hr IV .Q1H1M PRN PRN Reason: HYDRATION Stop: 03/26/19 16:29 Last Infusion: 02/24/19 18:00 Dose: Infused Documented by: Sodium Chloride (Sodium Chloride 0.9%) 1,000 mls @ 125 mls/hr IV .Q8H PRN PRN Reason: HYDRATION Stop: 03/26/19 16:53 Last Admin: 02/26/19 04:19 Dose: 125 mls/hr Documented by: Metoprolol Succinate (Toprol Xl) 100 mg PO DAILY [facility] Stop: 03/27/19 21:01 Last Admin: 02/25/19 21:18 Dose: 100 mg Documented by: Morphine Sulfate (Morphine Sulfate) 2 mg IV Q1H PRN PRN Reason: Pain Stop: 03/26/19 16:54 Last Admin: 02/25/19 08:29 Dose: 2 mg Documented by: Ondansetron HCl (Zofran) 4 mg IV Q6H PRN PRN Reason: Nausea And Vomiting Stop: 03/26/19 16:54 Last Admin: 02/25/19 01:01 Dose: 4 mg Documented by: Pantoprazole Sodium (Protonix) 20 mg PO DAILY@0700 [facility] Stop: 03/27/19 07:01 Last Admin: 02/26/19 07:34 Dose: 20 mg Documented by: Rosuvastatin Calcium (Crestor) 20 mg PO HS [facility] Stop: 03/27/19 21:01 Last Admin: 02/25/19 21:19 Dose: 20 mg Documented by: Physical Examination - Exam Narrative: General: Nontoxic, no acute distress, not in renal colic, eager to get out of here Psych: Alert and oriented, mentating well,, affect appropriate HEENT: EOM grossly intact , no scleral icterus, normocephalic Lungs: Respirations unlabored, clear, good inspiratory effort Abdomen: Morbidly obese, no peritoneal signs Neuro: Laying in bed but no gross focal deficits Extremities: Moves all 4, located fine dexterity, perfused Heart: No JVD Skin: No obvious rash or bruising on visualize skin Back: No CVA tenderness Vital Signs: Vital Signs - Last Taken Temp 99.0 F 02/26/19 10:00 Pulse 77 02/26/19 10:00 Resp 18 02/26/19 10:00 BP 128/64 02/26/19 10:00 Pulse Ox 96 02/26/19 10:00 O2 Oxygen Delivery Method Room Air - Results and Findings: Narrative: #1 gross hematuria: She has done this before, she is a smoker. My review of the CT shows nothing obvious I don't know what to make of this inflammatory type finding of the ureters and kidneys/renal pelvis. She will require an outpatient workup for this going forward. Urinalysis was not normal but it was weighted into a hat. She has not gotten antibiotics. Requested midstream urine be sent so I have something to look at. If normal I would trusted if abnormal I might catheterized. It is possible this was all super therapeutic INR with bilateral obstruction from bleeding with resolution which gave the imaging finding but in a smoker need to make sure nothing else going on. She will see me in a few weeks with a repeat urinalysis I may change to catheterized depending on today's urinalysis findings. Obtaining ultrasound to make sure hydronephrosis on/not worse and to discuss best way to go after the hematuria workup i.e. office cystoscopy versus sit tight and perform down the road versus in the operating room with formal retrogrades and the ability to obtain a biopsy. A little more complicated with the Coumadin I might have her hold for a few days sounds like her DVTs are legitimate and she is higher risk. I discussed patient personally with primary provider and I will try and get him some additional inflow prior to patient discharge. I have arranged for follow- up with my office and discussed with nursing staff. Patient was comfortable. I hope she gets off the cigarettes by then. Lab/Microbiology results last 24 hrs: Abnormal/Pending Laboratory Last 24 HRS 02/26/19 02/26/19 05:25 05:25 PT 20.9 H INR (Anticoag Therapy) 2.18 H Chloride 109 H Carbon Dioxide 22.3 L Culture 02/24/19 14:15 Blood Culture - Preliminary Blood No Growth 24 Hours 02/24/19 13:48 Blood Culture - Preliminary Blood NO GROWTH 24 HOURS
[2019-02-26 15:06] VITALS: BP 148/86
[2019-02-26 15:21] LABS: Urine Bilirubin Negative (NEGATIVE); Urine Blood 25 /ul (NEGATIVE); Urine Ketone Negative (NEGATIVE); Urine Nitrite Negative (NEGATIVE); Urine Protein Negative (NEGATIVE); Urine Urobilinogen Normal (NORMAL); Urine pH 6.5 pH (5.0-7.0)
[2019-02-26 15:30] LABS: Urine Appearance Clear (CLEAR); Urine Color Yellow
[2019-02-26 15:31] LABS: Urine Bacteria 1+; Urine RBC 0-5 /hpf (0-5); Urine WBC 0-5 /hpf (0-5)
[2019-02-26] MEDS: METOPROLOL SUCCINATE 100 MG TABLET.SA PO SCH (16:16)
[2019-02-26] MEDS ORDERED: ENOXAPARIN SODIUM 40 MG/0.4 ML SYRG SC SCH (16:45)
--- NOTE | 2019-02-26 16:57 | DS ---
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 She was found to have a supratherapeutic INR of greater than 10, currently on Coumadin for DVT. She has been on this medication for the last month and was taking 12.5 mg a day. She received 10 mg of vitamin K and her Coumadin was held. INR was 2.18 on the day of discharge. She was advised to restart Coumadin on the evening of discharge. She is given 1 shot of Lovenox prior to discharge. She is to follow-up with her PCP tomorrow morning to have INR rechecked which she agrees to do. Patient was very anxious to leave. Her hemoglobin was stable upon discharge (13.4) CT scan with contrast showed her to have bilateral obstructions causing mild hydronephrosis. Dr. Francis was consulted who felt like this was likely artifact but ordered a clean-catch urine to look for infection as this was a possibility though not as likely that she had a normal white count has been afebrile and hemostatically stable since being here. We will notify her and Dr. Francis of the results once they return. Flank dave had resolved upon discharge and she was no longer having blood in her urine. Patient instructed to restart her home medications though advised her to only take 10 mg of Coumadin daily and so the 12.5 that she was on previously. Patient states that she had at one point been on 50 mg daily so unsure if her INRs is labile and is hard to control with Coumadin or if she had something happen to her that likely affected her INR. Infection deafly could have done it but again not sure where the infection is and does not appear to have one at this time. She was instructed to follow-up with Dr. Francis in 1 to 2 weeks to make sure her kidneys are still doing well. Her kidney function while here was fantastic with a GFR greater than 80 and a creatinine of 0.74. Next She is discharged home in stable condition and advised to follow-up with her PCP as directed. Procedures Performed: none - No she does not want shots start Coumadin back she does continue to drop Results and Findings: Pending Mircobiology Results 02/24/19 13:48 Blood Blood Culture - Preliminary NO GROWTH AFTER 48 HOURS 02/24/19 14:15 Blood Blood Culture - Preliminary No Growth 24 Hours Lab Pending Results 02/24/19 13:31: Urine Color Red, Urine Appearance Bloody, Urine pH 7.0, Ur Specific [place] 1.025, Urine Protein 100 H, Urine Glucose (UA) Negative, Urine Ketones Negative, Urine Blood 250 H, Urine Nitrate Negative, Urine Bilirubin Negative, Prot Sulfosalicylic Acd 4+ H, Urine Urobilinogen Normal, Ur Leukocyte Esterase Negative, Urine RBC >50 H, Urine WBC 5-10 H, Ur Epithelial Cells None seen, Urine Bacteria 1+ H, Urine Culture Comments No culture indicated 02/24/19 13:45: PT Greater than 100.0 H, INR (Anticoag Therapy) Greater than 10.00 H* 02/24/19 13:48: WBC 9.1, RBC 4.32, Hgb 14.6, Hct 42.7, MCV 98.8, MCH 33.8 H, MCHC 34.2, RDW 13.8, Plt Count 323, MPV 9.6, Immature Gran % (Auto) 0.10, Immature Gran # (Auto) 0.01, Neutrophils % 72.7, Lymphocytes % 15.9 L, Monocytes % 8.5, Eosinophils % 2.0, Basophils % 0.8, Nucleated RBC % 0.0, Neutrophils # 6.6 H, Lymphocytes # 1.44 L, Monocytes # 0.8, Eosinophils # 0.2, Absolute Basophils 0.1 02/24/19 13:48: Sodium 137, Plasma Sodium 137, Potassium 4.2, Chloride 103, Carbon Dioxide 23.2 L, Anion Gap 15.0 H, BUN 9, Creatinine 0.79, Est GFR (Non-Af Amer) 82 D, BUN/Creatinine Ratio 11.4, Random Glucose 104, Calcium 9.2, Calcium Adj for Albumin 9.4, Total Bilirubin 1.0, AST 15, ALT 19, Alkaline Phosphatase 112, C-Reactive Prot, Quant 1.2 H, Total Protein 7.4, Albumin 3.4 02/24/19 19:05: PT Greater than 100.0 H, INR (Anticoag Therapy) Greater than 10.00 H* 02/25/19 05:15: WBC 6.9 D, RBC 4.00 L, Hgb 13.4, Hct 40.5, MCV 101.3 H, MCH 33.5 H, MCHC 33.1, RDW 13.7, Plt Count 280, MPV 9.6, Immature Gran % (Auto) 0.10, Immature Gran # (Auto) 0.01, Neutrophils % 61.5, Lymphocytes % 25.9, Monocytes % 8.8, Eosinophils % 3.0, Basophils % 0.7, Nucleated RBC % 0.0, Neutrophils # 4.2, Lymphocytes # 1.79, Monocytes # 0.6, Eosinophils # 0.2, Absolute Basophils 0.1 02/25/19 05:15: PT 48.5 H, INR (Anticoag Therapy) 5.22 H* 02/25/19 05:15: Sodium 138, Plasma Sodium 138, Potassium 3.8, Chloride 105, Carbon Dioxide 23.3 L, Anion Gap 13.5, BUN 9, Creatinine 0.69, Est GFR (Non-Af Amer) 95, BUN/Creatinine Ratio 13.0, Random Glucose 105, Calcium 8.5 02/26/19 05:25: Sodium 140, Plasma Sodium 140, Potassium 4.0, Chloride 109 H, Carbon Dioxide 22.3 L, Anion Gap 12.7, BUN 8, Creatinine 0.74, Est GFR (Non-Af Amer) 88, BUN/Creatinine Ratio 10.8, Random Glucose 99, Calcium 8.7 02/26/19 05:25: PT 20.9 H, INR (Anticoag Therapy) 2.18 H 02/26/19 14:58: Urine Color Yellow, Urine Appearance Clear, Urine pH 6.5, Ur Specific [place] 1.010, Urine Protein Negative, Urine Glucose (UA) Negative, Urine Ketones Negative, Urine Blood 25 H, Urine Nitrate Negative, Urine Bilirubin Negative, Urine Urobilinogen Normal, Ur Leukocyte Esterase Negative, Urine RBC 0-5, Urine WBC 0-5, Ur Epithelial Cells 0-5, Urine Bacteria 1+ H, Urine Culture Comments Culture to follow Discharge Location: Home Disposition: Home self-care Condition: Fair Discharge Activity: Activity as tolerated Discharge Diet: Low fat/chol Referrals: Ashok Holloway MD [Primary Care Provider] - Additional Patient Instructions (free text): Appointment with Dr. Gardner (Urology) on Sunday03/02/19 @ 11:15 a.m. (At [facility]). [facility] will call you with appointment for ultrasound and urine recheck, needs to be done prior to appointment on 03/12. Prescriptions (Any new or edited meds): Warfarin Sodium [Coumadin] 10 mg PO DAILY #30 tab Complete Home Medications List: Complete Home Medication List: aspirin 81 mg tablet,delayed release 81 mg PO DAILY 06/03/18 atorvastatin 20 mg tablet 20 mg PO DAILY 06/03/18 dextroamphetamine-amphetamine ER 25 mg 24hr capsule,extend release 50 mg PO DAILY cap 06/03/18 lisinopril 20 mg tablet 20 mg PO DAILY 06/03/18 medroxyprogesterone 150 mg/mL intramuscular suspension 150 mg IM [id number] 06/03/18 multivitamin tablet 1 tab PO DAILY 06/03/18 omeprazole 20 mg capsule,delayed release 40 mg PO DAILY 06/03/18 ranitidine 150 mg tablet 150 mg PO DAILY 06/03/18 buspirone 10 mg tablet 10 mg PO BID 01/02/19 Fexofenadine/Pseudoephedrine [Sharmila-D 24 Hour Tablet] 1 ea PO DAILY 01/21/19 Metoprolol Succinate [Toprol Xl] 100 mg PO QAM 02/25/19 Warfarin Sodium [Coumadin] 10 mg PO DAILY #30 tab 02/26/19
== END 2019-02-26 17:23 | disposition home or self-care (01) ==
LOC: ER 13:06 → MS 13:06 → ER 14:43 → MS 17:09
PROVIDERS: ADMIT Family Medicine; ATTEND Family Medicine
CPT/HCPCS: 36415; 74176; 74177; 80048; 80053; 81001; 85025; 85610; 86140; 87040; 87086; 96361; 96372; 96374; 96375; 99285; G0378; J2405; Q9967